=== PATIENT | male | born 1995 | race Caucasian/White ===

== ENCOUNTER 2018-12-02 19:39 | Emergency (ER) | payer BC ==
[2018-12-02 19:57] VITALS: BP 135/61
--- NOTE | 2018-12-02 20:06 | UC ---
Lower Extremity/Ankle HPI - HPI Summary HPI Summary: 22 yo male with right lateral foot pain x days no specific injury recalled has been very active - History of Current Complaint Chief Complaint: UCLowerExtremity Stated Complaint: RIGHT FOOT INJURY Time Seen by Provider: 12/02/18 19:43 Hx Obtained From: Patient Onset/Duration: Sudden Onset, Gradual Onset, Lasting Minutes Severity Initially: Mild Severity Currently: Moderate Pain Intensity: 5 Pain Scale Used: 0-10 Numeric Aggravating Factor(s): Standing, Ambulation Alleviating Factor(s): Rest Able to Bear Weight: Yes Feet (Multiple View): 1 - pain - Allergies/Home Medications Allergies/Adverse Reactions: Allergies Allergy/AdvReac Type Severity Reaction Status Date / Time No Known Allergies Allergy Verified 12/02/18 19:57 Home Medications: Home Medications NK [No Home Medications Reported] 12/02/18 [History Confirmed 12/02/18] PMH/Surg Hx/FS Hx/Imm Hx Previously Healthy: Yes - Surgical History Surgical History: None - Family History Known Family History: Positive: Other - father and sibs with Charcot Leann Tooth - Social History Alcohol Use: None Substance Use Type: None Smoking Status (MU): Never Smoked Tobacco Review of Systems All Other Systems Reviewed And Are Negative: Yes Constitutional: Positive: Negative Skin: Positive: Negative Eyes: Positive: Negative ENT: Positive: Negative Respiratory: Positive: Negative Cardiovascular: Positive: Negative Gastrointestinal: Positive: Negative Genitourinary: Positive: Negative Motor: Positive: Negative Neurovascular: Positive: Negative Musculoskeletal: Positive: Arthralgia - right foot Neurological: Positive: Negative Psychological: Positive: Negative Physical Exam Triage Information Reviewed: Yes Appearance: Well-Appearing, No Pain Distress, Well-Nourished Vital Signs: Initial Vital Signs Temp 98.3 F 12/02/18 19:52 Pulse 90 12/02/18 19:52 Resp 16 12/02/18 19:52 BP 135/61 12/02/18 19:52 Pulse Ox 99 12/02/18 19:52 Vital Signs Reviewed: Yes Eyes: Positive: Conjunctiva Clear ENT: Positive: Hearing grossly normal. Negative: Nasal congestion, Nasal drainage, Trismus, Muffled voice, Hoarse voice Neck: Positive: Supple, Nontender, No Lymphadenopathy Respiratory: Positive: Lungs clear, Normal breath sounds, No respiratory distress, No accessory muscle use Cardiovascular: Positive: RRR, No Murmur Musculoskeletal: Positive: ROM Intact, No Edema, Other: - slightly antalgic gait Neurological: Positive: Alert Psychological Exam: Normal Skin Exam: Normal Diagnostics - Radiology No standard instances Radiology Interpretation Completed By: ED Physician Summary of Radiographic Findings: RIGHT FOOT- no fx noted Lower Extremity Course/Dx - Differential Dx/Diagnosis Provider Diagnosis: Right foot sprain Discharge ED - Sign-Out/Discharge Documenting (check all that apply): Patient Departure All imaging exams completed and their final reports reviewed: No - Discharge Plan Condition: Stable Disposition: HOME Patient Education Materials: Foot Sprain (ED) Referrals: Russell Nicole MD [Medical Doctor] - If Needed Additional Instructions: The official XR reading is pending rest elevate ice post op shoe advil or aleve recheck with orthopedist next week if not improved - Billing Disposition and Condition Condition: STABLE Disposition: Home
--- NOTE | 2018-12-03 08:54 | UC ---
- Progress Note Progress Note: Reviewd report of foot xray--negative--no discrepancy in reading. Course/Dx - Diagnoses Provider Diagnoses: Right foot sprain Discharge ED - Sign-Out/Discharge Documenting (check all that apply): Patient Departure All imaging exams completed and their final reports reviewed: Yes - Discharge Plan Condition: Stable Disposition: HOME Patient Education Materials: Foot Sprain (ED) Referrals: Russell Nicole MD [Medical Doctor] - If Needed Additional Instructions: The official XR reading is pending rest elevate ice post op shoe advil or aleve recheck with orthopedist next week if not improved - Billing Disposition and Condition Condition: STABLE Disposition: Home
== END 2018-12-02 20:28 | disposition home or self-care (01) ==
LOC: UCCORT 19:39
DX: S93.601A Unspecified sprain of right foot, initial encounter (principal); X58.XXXA Exposure to other specified factors, initial encounter; Y92.9 Unspecified place or not applicable
CPT/HCPCS: 99202; G0463